=== PATIENT | female | born 1980 | race Two or more races ===

== ENCOUNTER 2020-01-04 15:00 | Observation (INO) | payer MEDICAID ==
[~2020-01-04] VITALS: Ht 157.5 cm; Wt 79.8 kg
[2020-01-04] MEDS ORDERED: SODIUM CHLORIDE 0.9% 1,000 ML IV SCH (15:45)
[2020-01-04] MEDS ORDERED: CITRIC ACID/SODIUM CITRATE SOLN 30ML UDC PO ONE (15:45)
[2020-01-04] MEDS ORDERED: ONDANSETRON HCL 4MG/2ML INJ IV ONE (15:45)
[2020-01-04 16:12] LABS: HEMATOCRIT. 42.6 % (36.0-48.0); HEMOGLOBIN. 14.7 g/dL (12.0-16.0); MEAN CORPUSCULAR HEMOGLOBIN 29.8 pg (28.0-32.0); MEAN CORPUSCULAR VOLUME 86.5 fL (81.0-99.0); MEAN PLATELET VOLUME 8.8 fl (7.4-10.4); PLATELET 270 x1000/uL (130-400); RED BLOOD CELL COUNT 4.92 mill/uL (4.2-5.4); RED CELL DISTRIBUTION WIDTH 13.4 % (11.6-14.6)
[2020-01-04 16:37] LABS: CHLORIDE 107 mEq/L (98-107)
[2020-01-04 17:40] LABS: PLATELET ESTIMATE NORMAL
[2020-01-06] MEDS ORDERED: PREN-118 PO (06:41)
== END 2020-01-04 17:30 | disposition home or self-care (01) ==
LOC: 8 EST LDRP 15:00
PROVIDERS: ADMIT Obstetrics & Gynecology; ATTEND Obstetrics & Gynecology
DX: O21.2 Late vomiting of pregnancy (principal); O36.8130 Decreased fetal movements, third trimester, not applicable or unspecified; O26.893 Other specified pregnancy related conditions, third trimester; N89.8 Other specified noninflammatory disorders of vagina; Z3A.38 38 weeks gestation of pregnancy
CPT/HCPCS: 36415; 80053; 85025; 96361; 96374; G0378; J2405; 59025; 96360; 99281; J7030